=== PATIENT | female | born 1975 | race Asian ===

== ENCOUNTER 2019-10-24 13:50 | Inpatient (IN) | payer MEDICAID ==
[~2019-10-24] VITALS: Ht 162.6 cm; Wt 85.9 kg
--- NOTE | 2019-10-24 14:08 | NUR ---
BIB [facility] for c/o anxiety attack at home. Patient nonverbal, does not respond to verbal stimuli but responds to painful stimuli. Respiratory even and unlabored,, no cough no sob. No cardiovascular distress noted, all pulses palpable.
--- NOTE | 2019-10-24 14:22 | NUR ---
ERMD at bedside for MSE
[2019-10-24 14:49] LABS: BASOPHILS # (AUTO) 0.1 K/uL (0.0-8.0); BASOPHILS % (AUTO) 0.9 % (0.0-2.0); EOSINOPHILS # (AUTO) 0.3 K/uL (0.0-0.7); EOSINOPHILS % (AUTO) 3.1 % (0.0-7.0); HEMATOCRIT 43.7 % (31.2-41.9); HEMOGLOBIN 14.5 g/dL (10.9-14.3); LYMPHOCYTES # (AUTO) 2.9 K/uL (20.0-40.0); LYMPHOCYTES % (AUTO) 31.3 % (20.5-51.5); MEAN CORPUSCULAR HEMOGLOBIN 30.4 uug (24.7-32.8); MEAN CORPUSCULAR HGB CONC 33 g/dL (32.3-35.6); MEAN CORPUSCULAR VOLUME 91.6 fL (75.5-95.3); MONOCYTES # (AUTO) 0.6 K/uL (2.0-10.0); MONOCYTES % (AUTO) 6.9 % (0.0-11.0); NEUTROPHILS # (AUTO) 5.4 K/uL (1.8-8.9); NEUTROPHILS % (AUTO) 57.8 % (38.5-71.5); PLATELET COUNT (AUTO) 304 K/uL (179-408); RED BLOOD CELL COUNT(AUTO) 4.77 MIL/uL (3.63-4.92); WHITE BLOOD COUNT (AUTO) 9.3 K/uL (3.8-11.8)
[2019-10-24 14:57] LABS: CREATININE 0.9 mg/dL (0.6-1.3); POTASSIUM 3.8 mmol/L (3.5-5.1)
[2019-10-24 15:03] LABS: BILIRUBIN,DIRECT 0.2 mg/dL (0.0-0.2); BILIRUBIN,TOTAL 0.5 mg/dL (0.2-1.0)
[2019-10-24 15:04] LABS: ETHANOL < 3 MG/DL (0-0)
--- NOTE | 2019-10-24 15:09 | NUR ---
Delay in EKG d/t malfunction on the actual unit. ERMD made aware, and nursing utility mechanic supervisor made aware.
[2019-10-24 16:54] LABS: *BILIRUBIN,URIN NEGATIVE (NEGATIVE); *BLOOD, URINE 2+ (NEGATIVE); *COLOR,URINE YELLOW (YELLOW); *KETONES,URINE NEGATIVE (NEGATIVE); *UROBILINOGEN,URINE 0.2 E.U./dl (NORMAL); LEUKOCYTE ESTERASE ,URINE NEGATIVE (NEGATIVE); NITRITE, URINE NEGATIVE (NEGATIVE); UGLUCOSE NEGATIVE (NEGATIVE)
--- NOTE | 2019-10-24 17:00 | NUR ---
Patient refusing to be admitted ERMD notified.
[2019-10-24 17:06] LABS: *CLARITY,URINE HAZY (CLEAR)
[2019-10-24 17:07] LABS: BACTERIA,URINE FEW /HPF (NONE SEEN); RBC,URINE 50-80 /HPF (0-3); SQUAMOUS EPITHELIAL CELL,UR MODERATE /HPF (NONE SEEN); WBC,URINE 0-3 /HPF (0-3)
[2019-10-24 17:10] LABS: *AMPHETAMINE, URINE NEGATIVE (NEGATIVE); *BARBITURATE, URINE NEGATIVE (NEGATIVE); *CANNABINOID, URINE NEGATIVE (NEGATIVE); *COCCAINE, URINE NEGATIVE (NEGATIVE); *OPIATE, URINE NEGATIVE (NEGATIVE); *PHENCYCLIDINE SCREEN,URINE NEGATIVE (NEGATIVE)
--- NOTE | 2019-10-24 17:44 | NUR ---
Patient spoke with family members and changed her mind, she will stay for admission. RICK made aware.
--- NOTE | 2019-10-24 18:03 | NUR ---
LUANN to call back for report.
--- NOTE | 2019-10-24 18:26 | NUR ---
Report given to EMIL KONG
--- NOTE | 2019-10-24 18:33 | NUR ---
SBAR report received from Vika
[2019-10-24] MEDS ORDERED: IV NS 1000 ML 1,000 ML IV PRN (18:36)
[2019-10-24] MEDS ORDERED: MAGNESIUM HYDROXIDE 30 ML LIQUID UDC PO PRN (18:45)
[2019-10-24] MEDS ORDERED: ACETAMINOPHEN 325 MG TABLET PO PRN (18:45)
[2019-10-24] MEDS ORDERED: ONDANSETRON 4 MG/2 ML VIAL IV PRN (18:45)
--- NOTE | 2019-10-24 18:45 | NUR ---
admitted to tele room 321 44 yr old female. patient awake and verbal, moving all extremities. family, dtr at the bedside. placed on tele monitor ekg sr 80/min. IV saline lock RAC.
--- NOTE | 2019-10-24 18:55 | NUR ---
Patient transported to TELE in stable condition.
--- NOTE | 2019-10-24 19:00 | NUR ---
[facility]. PT IN NO ACUTE DISTRESS. IV INTACT. JAIL ASSESSMENT DONE. ADMISSION PROCESS AND CARE PLAN INITIATED . FAMILY AT BEDSIDE. SAFETY AND COMFORT PROVIDED.WILL CONTINUE TO MONITOR.
[2019-10-24 20:00] VITALS: BP 131/64
[2019-10-25 04:00] VITALS: BP 114/61
--- NOTE | 2019-10-25 06:06 | NUR ---
PT IN NO ACUTE DISTRESS. RESISTANCE MACHINE WELDER SETTER AT BEDSIDE. SAFETY AND COMFORT PROVIDED.PRESCRIBED MEDICATION GIVEN AND PT TOLERATED IT WELL. ALL NEEDS ARE MET. WILL ENDORSE TO INCOMING NURSE FOR CONTINUITY OF CARE. Addendum: 10/25/19 at 0610 by LIZET SCHNEIDER RN WRONG PT
--- NOTE | 2019-10-25 06:10 | NUR ---
PT SLEPT THROUGHOUT THE SHIFT. DAUGHTER AT BEDSIDE. PT IN NO ACUTE DISTRESS.I V INTACT. SAFETY AND COMFORT PROVIDED.ALL NEEDS ARE MET. WILL ENDORSE TO INCOMING NURSE FOR CONTINUITY OF CARE.
[2019-10-25 07:21] LABS: BILIRUBIN,TOTAL 0.8 mg/dL (0.2-1.0); CREATININE 0.8 mg/dL (0.6-1.3); MAGNESIUM 1.9 mg/dL (1.8-2.4); PHOSPHOROUS 2.8 mg/dL (2.5-4.9); POTASSIUM 3.5 mmol/L (3.5-5.1); TOTAL PROTEIN, SERUM 7.2 g/dL (6.4-8.2)
[2019-10-25 07:23] LABS: BASOPHILS # (AUTO) 0.1 K/uL (0.0-8.0); BASOPHILS % (AUTO) 1.1 % (0.0-2.0); EOSINOPHILS # (AUTO) 0.2 K/uL (0.0-0.7); EOSINOPHILS % (AUTO) 2.9 % (0.0-7.0); HEMATOCRIT 40.5 % (31.2-41.9); HEMOGLOBIN 13.5 g/dL (10.9-14.3); LYMPHOCYTES # (AUTO) 2.8 K/uL (20.0-40.0); LYMPHOCYTES % (AUTO) 35.4 % (20.5-51.5); MEAN CORPUSCULAR HEMOGLOBIN 30.7 uug (24.7-32.8); MEAN CORPUSCULAR HGB CONC 33 g/dL (32.3-35.6); MEAN CORPUSCULAR VOLUME 92.5 fL (75.5-95.3); MONOCYTES # (AUTO) 0.5 K/uL (2.0-10.0); MONOCYTES % (AUTO) 6.5 % (0.0-11.0); NEUTROPHILS # (AUTO) 4.4 K/uL (1.8-8.9); NEUTROPHILS % (AUTO) 54.1 % (38.5-71.5); PLATELET COUNT (AUTO) 278 K/uL (179-408); RED BLOOD CELL COUNT(AUTO) 4.38 MIL/uL (3.63-4.92)
--- NOTE | 2019-10-25 07:30 | NUR ---
RECEIVED PATIENT IN BED ASLEEP WITH SIGNIFICANT OTHER AT BEDSIDE. NO C/O PAIN AT THIS TIME AND NO S/S OF ACUTE DISTRESS NOTED. IV INTACT WITH IV FLUID RUNNING NORMAL SALINE AT 75 CC/HR. SAFETY AND COMFORT PROVIDED AT ALL TIMES. WILL CONTINUE TO MONITOR.
--- NOTE | 2019-10-25 12:00 | NUR ---
NOTIFIED DR. WINTERS THAT EEG IS UNABLE TO COME TODAY.
[2019-10-25 12:17] VITALS: BP 124/58
[2019-10-25 16:31] VITALS: BP 107/65
--- NOTE | 2019-10-25 18:15 | NUR ---
RESIDENT AWAKE, ALERT AND ORIENTED IN BED WITH FAMILY HAVING DINNER, NO S/S OF ACUTE DISTRESS NOTED., NO C/O PAIN AT THIS TIME. FAMILY WAITING FOR DR. ZHANG, CALLED DR. ZHANG EARLIER STATED THAT HE WILL BE HERE TODAY . KEPT CLEAN AND DRY AT ALL TIMES. ALL NEEDS ATTENDED . CALL LIGHT WITHIN REACH AND WILL CONTINUE TO MONITOR
--- NOTE | 2019-10-25 19:00 | NUR ---
CALLED DR. ZHANG, STATED THAT HE COULDN'T MAKE IT TODAY AND THAT HE NOTIFIED DR. WINTERS.
--- NOTE | 2019-10-25 20:00 | NUR ---
PT AWAKE ALERT, WANTED TO GO HOME ,WAITING FOR THE NEUROLOGIST. SPOKE WITH DAUGHTER ABOUT THE CONDITION.WILL WAIT FOR THE DOCTOR IN AM.
[2019-10-25 20:52] VITALS: BP 115/56
[2019-10-26 00:35] VITALS: BP 114/56
[2019-10-26 05:12] VITALS: BP 118/55
--- NOTE | 2019-10-26 09:00 | NUR ---
Pt is discharge home. PT is to be discharge after EEG is done. Called RT. To f/u when eeg will be done.
--- NOTE | 2019-10-26 10:00 | NUR ---
EEG to be done between 4-6pm. Noted DR hatfield. Pt prefers to stay over and have eeg done and then be discharge after.
[2019-10-26 11:33] VITALS: BP 108/67
[2019-10-26 15:43] VITALS: BP 101/52
--- NOTE | 2019-10-26 18:30 | NUR ---
manometer technician here for the procedure.
--- NOTE | 2019-10-26 19:49 | NUR ---
DISCHARGE PATIENT HOME VIA PRIVATE CAR, ACCOMPANIED BY AND CHILDREN. GIVEN DISCHARGE PAPER AND INSTRUCTION TO DO FOLLOW UP WITH NEUROLOGIS AND PCP. [facility] INFO AND INSTRUCTION GIVEN. GIVEN INSTRUCTION HOW TO GET COPY OF EEG RESULTS, GIVEN MED RECORD NUMBER.
== END 2019-10-26 19:55 | disposition home or self-care (01) | DRG 53 ==
LOC: ER 13:52 → TELE3 18:49
PROVIDERS: ADMIT Internal Medicine; ATTEND Internal Medicine
DX: R56.9 Unspecified convulsions (principal); Z91.012 Allergy to eggs; Z91.018 Allergy to other foods; Z91.040 Latex allergy status
CPT/HCPCS: 36415; 70030-TC; 70450; 71045; 80307; 83735; 84100; 85025; 85730; 93005; A4663; G0378; G0480; J7030